=== PATIENT | male | born 1970 | race Two or more races ===

== ENCOUNTER 2020-09-06 19:04 | Emergency (ER) | payer OTHER ==
[~2020-09-06] VITALS: Ht 175.3 cm; Wt 90.7 kg
[2020-09-06 19:11] VITALS: BP 125/71
== END 2020-09-07 00:03 | disposition left against medical advice (07) ==
LOC: ER 19:04
DX: R22.31 Localized swelling, mass and lump, right upper limb (principal); L53.9 Erythematous condition, unspecified; Z53.21 Procedure and treatment not carried out due to patient leaving prior to being seen by health care provider